=== PATIENT | male | born 1965 | race Two or more races ===

== ENCOUNTER 2022-10-27 20:28 | Emergency (ER) | payer OTHER ==
[~2022-10-27] VITALS: Ht 170.2 cm; Wt 83.5 kg
[2022-10-27] MEDS ORDERED: COZAAR50 MG PO (20:49)
== END 2022-10-28 02:23 ==
LOC: ER 20:28
DX: S22.42XA Multiple fractures of ribs, left side, initial encounter for closed fracture (principal); X58.XXXA Exposure to other specified factors, initial encounter; Y93.9 Activity, unspecified; Y92.9 Unspecified place or not applicable; Y99.9 Unspecified external cause status; Z88.0 Allergy status to penicillin; I10 Essential (primary) hypertension; E11.9 Type 2 diabetes mellitus without complications; Z79.4 Long term (current) use of insulin